=== PATIENT | female | born 1935 | race Caucasian/White ===

== ENCOUNTER 2019-04-17 12:05 | Emergency (ER) | payer MEDICARE ==
--- NOTE | 2019-04-17 13:44 | RAD ---
LEFT KNEE RADIOGRAPHS FOUR VIEWS: 04/17/2019 PROVIDED CLINICAL HISTORY: Pain. COMPARISON: None. FINDINGS: Postoperative changes of left total knee arthroplasty are demonstrated without evidence for hardware complication. No evidence for fracture or other acute osseous abnormality. Cutaneous homer are seen anteriorly, in the midline. IMPRESSION: No evidence for an acute process. If there is persistent clinical concern, conservative management and follow-up imaging are advised. POS: JOSEPH
--- NOTE | 2019-04-17 14:31 | CT ---
Head CT without contrast 04/17/2019: Comparison: None HISTORY: Head trauma, fall TECHNIQUE: Axial CT imaging at 5 mm intervals from vertex through skull base without contrast FINDINGS: The visualized paranasal sinuses/mastoid air cells are well aerated. No displaced calvarial fracture. No intracranial hemorrhage, midline shift, or mass effect. No ventricular enlargement. There is prominent periventricular, deep, and subcortical white matter hypodensity, evidence of signi ficant small vessel disease. IMPRESSION: Significant small vessel disease noted. No intracranial hemorrhage or displaced calvarial fracture.
[2019-04-17 15:02] LABS: #Basophils 0.1 thou/uL (0.0-0.2); #Eosinphils 0.1 thou/uL (0.0-0.7); #Lymphocytes 1.5 thou/uL (1.20-3.40); #Monocytes 0.7 thou/uL (0.11-0.59); #Neutrophils 7.2 thou/uL (1.40-6.50); %Basophils 0.6 % (0.0-1.0); %Lymphocytes 15.4 % (21.0-51.0); %Monocytes 7.6 % (0.0-10.0); %Neutrophils 75.4 % (42.0-75.0); Hemoglobin 13.3 g/dL (12.0-16.0); Mean Corpuscular HGB CONC 33.2 g/dL (32.0-36.0); Mean Corpuscular Hemoglobin 32.4 pg (27.0-31.0); Mean Corpuscular Volume 97.6 fL (78.0-98.0); Mean Platelet Volume 8.5 fL (7.4-10.4); Platelet Count 247 thou/uL (130-400); RBC Distribution Width 12.6 % (11.5-14.5); White Blood Cell (WBC) Count 9.6 thou/uL (4.8-10.8)
--- NOTE | 2019-04-17 15:21 | RAD ---
THORACIC SPINE FRONTAL AND LATERAL IMAGIN04/17/2019 HISTORY: Fall. Trauma. Pain. COMPARISON: None. FINDINGS: There is multilevel disk space narrowing with degenerative endplate change and anterior osteophyte fo rmation throughout the thoracic spine, especially the mid thoracic spine and lower thoracic spine. Th oracic pedicles appear intact on frontal imaging. No anterolisthesis or retrolisthesis. No obvious fr acture. IMPRESSION: No displaced thoracic spine fracture is evident. POS: FAISAL
[2019-04-17 15:25] LABS: ALT (SGPT) 9 U/L (8-55); AST (SGOT) 17 U/L (5-34); Albumin 3.6 g/dL (3.4-4.8); Alkaline Phosphatase 95 U/L (40-110); Anion Gap 14 mmol/L (10-20); BUN (Urea Nitrogen) 20 mg/dL (9.8-20.1); Bilirubin, Total 0.6 mg/dL (0.2-1.2); Calc. Creatinine Clearance 0 mL/min (70-130); Calcium 9.3 mg/dL (7.8-10.44); Carbon Dioxide 26 mmol/L (23-31); Chloride 106 mmol/L (98-107); Estimated GFR-MDRD 53; Globulin 3.2 g/dL (2.4-3.5); Glucose 114 mg/dL (83-110); Potassium 4.2 mmol/L (3.5-5.1); Protein, Total 6.8 g/dL (6.0-8.3); Sodium 142 mmol/L (136-145)
[2019-04-17 16:24] LABS: Bacteria/HPF 4+ HPF (None Seen); Bilirubin Negative (Negative); Blood, Urine Trace (Negative); Clarity Extra Turbid (Clear); Glucose, Urine (Dipstick) Normal (Negative); Leukocyte 500 Leu/uL (Negative); Nitrite 2+ (Negative); Protein, Urine (Dipstick) 20 mg/dL (Neg-Trace); Squamous Epithelial 0-3 HPF (0-3); Urobilinogen Normal mg/dL (Less than 2); WBC/HPF Greater than 50 HPF (0-3)
== END 2019-04-17 16:40 | disposition home or self-care (01) ==
LOC: ERS 12:05
DX: M54.6 Pain in thoracic spine (principal); E03.9 Hypothyroidism, unspecified; E11.9 Type 2 diabetes mellitus without complications; I10 Essential (primary) hypertension; Z79.899 Other long term (current) drug therapy; W18.30XA Fall on same level, unspecified, initial encounter
CPT/HCPCS: 36415; 70450; 72070; 80053; 81001; 85025; 93005; A4353